=== PATIENT | female | born 1940 | race Caucasian/White ===

== ENCOUNTER 2017-01-14 10:34 | Outpatient (CLI) | payer MEDICARE, BC ==
--- NOTE | 2017-01-14 11:33 | RAD ---
RIGHT HIP 2 VIEWS: Date: 01/14/17 HISTORY: Lumbar radiculopathy. Right leg pain. FINDINGS: Femoral head contour is normal. Very mild degenerative changes of the right hip. No fracture or acute abnormality seen. IMPRESSION: No acute abnormality. POS: [facility]
== END 2017-01-14 10:35 | disposition home or self-care (01) ==
LOC: TBSIIMAG 10:34
PROVIDERS: ATTEND Neurological Surgery
DX: M54.16 Radiculopathy, lumbar region (principal)

== ENCOUNTER 2017-02-17 11:26 | Outpatient (CLI) | payer MEDICARE, BC ==
[2017-02-17 12:40] LABS: Hemoglobin 13.8 g/dL (12.0-16.0); Mean Corpuscular HGB CONC 32.7 g/dL (32.0-36.0); Mean Corpuscular Hemoglobin 32.4 pg (27.0-31.0); Mean Corpuscular Volume 99.1 fl (81.0-99.0); Mean Platelet Volume 6.3 fL (7.4-10.4); Platelet Count 308 thou/uL (130-400); RBC Distribution Width 13.2 % (11.5-14.5); Red Blood Cell (RBC) Count 4.25 mill/uL (4.20-5.40); White Blood Cell (WBC) Count 11.5 thou/uL (4.8-10.8)
[2017-02-17 13:02] LABS: Anion Gap 13 mmol/L (10-20); BUN (Urea Nitrogen) 23 mg/dL (9.8-20.1); Calc. Creatinine Clearance 0 mL/min (70-130); Calcium 9.8 mg/dL (7.8-10.44); Carbon Dioxide 26 mmol/L (23-31); Chloride 107 mmol/L (98-107); Estimated GFR-MDRD 87; Glucose 98 mg/dL (83-110); Potassium 3.9 mmol/L (3.5-5.1); Sodium 142 mmol/L (136-145)
--- NOTE | 2017-02-25 19:33 | EKG ---
Test Reason : Blood Pressure : / mmHG Vent. Rate : 063 BPM Atrial Rate : 063 BPM P-R Int : 162 ms QRS Dur : 074 ms QT Int : 390 ms P-R-T Axes : 073 063 021 degrees QTc Int : 399 ms Normal sinus rhythm Septal infarct , age undetermined Abnormal ECG When compared with ECG of 20-AUG-2016 11:31, Septal infarct is now Present Non-specific change in ST segment in Inferior leads Confirmed by RIYA DERAS (2) on 02/25/2017 7:32:31 PM Referred By: BENJIE Confirmed By:RIYA DERAS
== END 2017-02-17 11:27 | disposition home or self-care (01) ==
LOC: LABBT 11:26
PROVIDERS: ATTEND Neurological Surgery
DX: Z01.818 Encounter for other preprocedural examination (principal); M54.16 Radiculopathy, lumbar region; M48.061 Spinal stenosis, lumbar region without neurogenic claudication
CPT/HCPCS: 80048; 85027; 93005; 93010

== ENCOUNTER 2017-02-22 06:44 | Day surgery (SDC) | payer MEDICARE, BC ==
[2017-02-17 11:53] VITALS: BMI 28.7
--- NOTE | 2017-02-22 00:32 | HP ---
HISTORY OF PRESENT ILLNESS: Ms. Neville is a 76-year-old woman who presents for evaluation of multip le complaints, more specifically in this case is a major concern with inability to ambulate without t he assistance of a walker. She cites weakness in her arms and abnormality of her gait, as well as se rocky lower back pain and right-sided L3 radicular pains and groin pains. She has in the past been ev aluated by a neurologist who performed serial nerve conduction studies that showed worsening in her s ymptoms, although she does not have these reports with her. 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 She has met with Dr. Alonzo and also pursued injections with Dr. Shea, which did help, but onl y for a limited period of time. There was a concern about possible hip pathology and right hip x-ray was ordered, which was normal and at this time, she is now looking for the next step in her treatmen t. PAST MEDICAL HISTORY: Includes neuropathy, cervical stenosis, COPD, coronary arterial disease, gastr oesophageal reflux disease, and muscle contraction. CURRENT MEDICATIONS: Aspirin, Symbicort, pantoprazole, prednisone, diazepam, Lexapro, cyclobenzaprin e, atorvastatin, gabapentin, and colestipol. ALLERGIES: CODEINE. PHYSICAL EXAMINATION: NEUROLOGIC: The patient is alert and oriented x3. She has what appears to be cogwheel rigidity in h er upper extremities that was in both passive and active motions, showing oscillating tremor of very low frequency in the upper extremities, particularly with biceps and triceps flexion. Gait is also u nstable without the use of a walker. She has a shuffling low-stepping gait and starts to lose her ba britt and standing for short periods of time. With the walker, she walks essentially normal. She do es have a positive pronator drift in the right upper extremity. ASSESSMENT: Lumbar radiculopathy. PLAN: Dr. Alonzo met with the patient, reviewed imaging, and advocated for right-sided facetectomy an d foraminotomy at L2-L3 and L3-L4. He explained the risks, benefits, and alternatives to the procedu re. The patient expressed understanding and would like to move forward with surgery as discussed. I do believe the patient is mentally competent and capable of making medical decisions for herself. W e will move forward with surgery as planned. Sandip Stein PA-C dictating for Dr. Alonzo.
[2017-02-22] MEDS ORDERED: Bupivacaine HCl 0.5%/Epinephrine 1:200,000/PF 30 ml Vial ONE (07:57)
[2017-02-22] MEDS ORDERED: CEFAZOLIN/Water 2 GM/20 ML SYRINGE ONE ×2 (07:57→17:20)
[2017-02-22] MEDS ORDERED: Thrombin 5000 UNITS/5 ML VIAL ONE (07:57)
[2017-02-22] MEDS ORDERED: Fentanyl 100 MCG/2 ML VIAL ONE ×2 (08:57→10:53)
[2017-02-22] MEDS ORDERED: Hydrocortisone Sod Succ/PF 100 mg/2 ml Vial ONE ×2 (09:05→16:50)
[2017-02-22] MEDS ORDERED: Meperidine HCl/PF 25 MG/ML VIAL ONE (11:17)
--- NOTE | 2017-02-22 11:22 | OP ---
DATE OF PROCEDURE: 02/22/2017 SURGEON: Osvaldo Alonzo M.D. TIRE TRUCKER: Sandip Stein PA-C INDICATION: Pain. DIAGNOSIS: Lumbar radiculopathy secondary to lumbar stenosis. PROCEDURES: Right L2 through L4 hemilaminectomy, medial facetectomy, and decompression. ANESTHESIA: General. TECHNIQUE: The patient was brought into the operating room and placed under general anesthesia. She was flipped from a supine to a prone position on the operating room table. A linear incision was pl anned over the L2 through L4 region. After prepping and draping and after an appropriate operative p ause, the incision was created. The soft tissues were swept away from midline. Self-retaining retra ctors were placed in the wound for optimal exposure. After confirming the appropriate levels, a C-ar m fluoroscopy high-speed cutting drill bit as well as 2-mm, 3-mm, and 4-mm Kerrisons were used to per form a hemilaminectomy along the L2 through L4 segment. Laminectomy was extended laterally to encomp ass the medial aspect of the facet joint. After completely decompressing the lateral recesses, the w ound was irrigated. Hemostasis was maintained throughout. The wound was then closed in anatomic lay ers and a pressure dressing was applied. There were no known procedural complications.
[2017-02-22] MEDS ORDERED: traMADol HCl 50 MG TAB ONE (13:07)
[2017-02-22] MEDS ORDERED: PHENYLEPHRINE-NS 100 MCG/ML 10 ML SYRINGE ONE (16:50)
[2017-02-22] MEDS ORDERED: Propofol 200 MG/20 ML VIAL ONE (16:50)
[2017-02-22] MEDS ORDERED: Ondansetron HCl/PF 4 MG/2 ML Vial ONE (16:50)
[2017-02-22] MEDS ORDERED: Glycopyrrolate 0.2 MG/ML 5 ML SYRINGE ONE (16:50)
[2017-02-22] MEDS ORDERED: Sodium Chloride 0.9% 10 ML ONE (17:25)
[2017-02-22] MEDS ORDERED: Escitalopram Oxalate 20 mg Tablet PO SCH (21:00)
[2017-02-22] MEDS ORDERED: Atorvastatin Calcium 20 MG TAB PO SCH (21:00)
[2017-02-22] MEDS: Gabapentin 300 MG CAP PO SCH (21:54)
[2017-02-22] MEDS: Diazepam 5 MG TAB PO SCH (21:54)
[2017-02-22] MEDS ORDERED: Sodium Chloride 0.9% 1,000 ML IV SCH (23:46)
[2017-02-22] MEDS ORDERED: diphenhydrAMINE 25 MG CAP PO PRN (23:46)
[2017-02-22] MEDS ORDERED: Acetaminophen 650 MG Suppository PR PRN (23:46)
[2017-02-22] MEDS ORDERED: tiZANidine HCl 4 MG TAB PO PRN (23:46)
[2017-02-22] MEDS ORDERED: Morphine 4 MG/ML Carpuject SLOW IVP PRN (23:46)
[2017-02-22] MEDS ORDERED: diphenhydrAMINE 50 MG/ML VIAL IVP PRN (23:46)
[2017-02-22] MEDS ORDERED: traMADol HCl 50 MG TAB PO PRN ×2 (23:46)
[2017-02-22] MEDS ORDERED: Acetaminophen 325 MG TAB PO PRN (23:46)
[2017-02-22] MEDS ORDERED: Mag-Al 1200 mg/1200 mg/30 ML UDCUP PO PRN (23:46)
[2017-02-22] MEDS ORDERED: Ondansetron HCl/PF 4 MG/2 ML Vial SLOW IVP PRN (23:54)
[2017-02-23] MEDS ORDERED: CEFAZOLIN/Water 2 GM/20 ML SYRINGE SLOW IVP SCH (01:00)
[2017-02-23] MEDS ORDERED: Mometasone/Formoterol 120 PUFF INHALER INH SCH (06:30)
[2017-02-23] MEDS ORDERED: predniSONE 20 MG TAB PO SCH (08:00)
[2017-02-23] MEDS: Gabapentin 300 MG CAP PO SCH (08:16)
[2017-02-23] MEDS: Diazepam 5 MG TAB PO SCH (08:18)
[2017-02-23 09:11] VITALS: BP 173/103; TEMP 97.6
[2017-02-23] MEDS: Ipratropium Bromide 2.5 ml Neb NEB SCH ×2 (09:35→09:52)
[2017-02-25] MEDS ORDERED: Meloxicam 15 MG TAB PO SCH (09:00)
== END 2017-02-23 09:56 | disposition home or self-care (01) ==
LOC: SDC 06:44 → SJJU 14:04 → SDC 02-23 09:56
PROVIDERS: ATTEND Neurological Surgery
PROC: 00NY0ZZ Release Lumbar Spinal Cord, Open Approach (ICD-10-PCS; principal; 2017-02-22)
DX: M48.061 Spinal stenosis, lumbar region without neurogenic claudication (principal); M54.16 Radiculopathy, lumbar region; Z88.5 Allergy status to narcotic agent; Z98.41 Cataract extraction status, right eye; Z98.42 Cataract extraction status, left eye; Z90.710 Acquired absence of both cervix and uterus; Z90.49 Acquired absence of other specified parts of digestive tract; Z98.890 Other specified postprocedural states
CPT/HCPCS: 76001; 96374; A4216; J0670; J1720; J2175; J2405; J2704; J3010; J7506

== ENCOUNTER 2018-03-21 10:58 | Emergency (ER) | payer MEDICARE, BC ==
[2018-03-21 11:43] LABS: #Eosinphils 0.1 thou/uL (0.0-0.7); #Monocytes 0.8 thou/uL (0.11-0.59); #Neutrophils 8.5 thou/uL (1.40-6.50); %Basophils 0.1 % (0.0-1.0); %Eosinophils 0.8 % (0.0-10.0); %Lymphocytes 9.2 % (21.0-51.0); %Neutrophils 81.9 % (42.0-75.0); Hemoglobin 14.8 g/dL (12.0-16.0); Mean Corpuscular HGB CONC 32.9 g/dL (32.0-36.0); Mean Corpuscular Hemoglobin 32.7 pg (27.0-31.0); Mean Corpuscular Volume 99.4 fL (78.0-98.0); Mean Platelet Volume 6.8 fL (7.4-10.4); Platelet Count 270 thou/uL (130-400); RBC Distribution Width 11.1 % (11.5-14.5); Red Blood Cell (RBC) Count 4.53 mill/uL (4.20-5.40); White Blood Cell (WBC) Count 10.4 thou/uL (4.8-10.8)
[2018-03-21 12:03] LABS: ALT (SGPT) 16 U/L (8-55); AST (SGOT) 23 U/L (5-34); Alkaline Phosphatase 70 U/L (40-150); Anion Gap 15 mmol/L (10-20); BUN (Urea Nitrogen) 13 mg/dL (9.8-20.1); Bilirubin, Total 0.2 mg/dL (0.2-1.2); Calc. Creatinine Clearance 0 mL/min (70-130); Carbon Dioxide 21 mmol/L (23-31); Chloride 108 mmol/L (98-107); Estimated GFR-MDRD 74; Globulin 2.5 g/dL (2.4-3.5); Glucose 131 mg/dL (83-110); Potassium 3.6 mmol/L (3.5-5.1); Protein, Total 6.5 g/dL (6.0-8.3); Sodium 140 mmol/L (136-145)
--- NOTE | 2018-03-21 12:12 | RAD ---
PORTABLE CHEST ONE VIEW: Date: 03-21-18 Time: 11:32 a.m. History: Nausea, vomiting, diarrhea. FINDINGS: Comparison made with exam of 02-11-14. The heart size is normal. The lungs are expanded without focal areas of consolidation, pneumothoraces or pleural effusions. IMPRESSION: No radiographic evidence of acute cardiopulmonary process. POS: [facility]
[2018-03-21 12:40] LABS: Bilirubin Negative (Negative); Blood, Urine Negative (Negative); Glucose, Urine (Dipstick) Negative (Negative); Leukocyte Negative (Negative); Nitrite Negative (Negative); Protein, Urine (Dipstick) Negative (Neg-Trace); Specific Gravity, Urine 1.025 (1.005-1.030); Urobilinogen 0.2 mg/dL (0.2-1.0)
[2018-03-21 12:45] LABS: Clarity CLEAR (Clear)
--- NOTE | 2018-03-21 13:33 | CT ---
CT OF ABDOMEN AND PELVIS: DATE: 03/21/2018. COMPARISON: 07/10/2016. HISTORY: Pain TECHNIQUE: Axial CT imaging at 5 mm intervals from the lung bases through the pubic symphysis with IV contrast. Coronal reformatted imaging obtained. FINDINGS: Accentuation of the bowel is slightly limited without oral contrast media. The imaged lung bases demonstrate no acute findings. Here is no free intraperitoneal air or fluid se en. The hepatic parenchyma is relatively hypodense, which may signify steatosis. There is a small hypode nsity in the left lobe of the liver on image 16 measuring 6-7 mm, stable and too small to characteriz e. Gallbladder, spleen, pancreas, adrenal glands, and kidneys demonstrate no acute findings. There is a distal colonic suture line in the presacral region. There is a suture line near the junction of the small bowel and colon within the right lower quadrant as well. Fluid material is seen within the stomach and numerous nondilated loops of small bowel within the abd omen/pelvis. There is scattered atherosclerotic calcification involving the abdominal aorta, particularly the infr arenal abdominal aorta, with extension into the arterial structures at the pelvis bilaterally. No lymphadenopathy is noted within the abdomen or pelvis. There is multilevel disk space narrowing and degenerative end plate change within the lower thoracic spine and the lumbar spine. There is mild stable levoscoliosis of the lumbar spine with multilevel r ight-sided lumbar spine osteophyte formation. No worrisome lytic or blastic bone lesions are seen. IMPRESSION: There is fluid seen within the stomach and multiple nondilated loops of small bowel. Findings may si gnify gastroenteritis or developing ileus/partial obstruction. No evidence for a high-grade small aurea wel obstruction is seen at this time and there is no free intraperitoneal air seen. POS: [facility]
[2018-03-21] MEDS ORDERED: ISOVUE-370 76%-LOCM 1 ML ONE (17:00)
== END 2018-03-21 14:19 | disposition home or self-care (01) ==
LOC: ERS 10:58
DX: R11.2 Nausea with vomiting, unspecified (principal); R19.7 Diarrhea, unspecified; J44.9 Chronic obstructive pulmonary disease, unspecified; F41.9 Anxiety disorder, unspecified; F32.9 Major depressive disorder, single episode, unspecified; Z77.22 Contact with and (suspected) exposure to environmental tobacco smoke (acute) (chronic); Z79.899 Other long term (current) drug therapy
CPT/HCPCS: 36415; 71045; 74177; 80053; 81003; 83605; 84484; 85025; 87040; 87086; 87804; 93005; 96360; Q9966

== ENCOUNTER 2018-05-09 10:45 | Outpatient (CLI) | payer MEDICARE, BC ==
--- NOTE | 2018-05-09 12:59 | RAD ---
2 VIEWS CHEST: Date: 05/09/18 COMPARISON: 03/07/14. HISTORY: Shortness of breath. FINDINGS: No pneumothorax, pleural fluid, focal consolidation, or alveolar edema. Heart and mediastinal contour s are stable. Stable increased linear interstitial density and mild pulmonary hyperinflation. IMPRESSION: Chronic findings as described above. No acute findings are seen. POS: [facility]
== END 2018-05-09 10:46 | disposition home or self-care (01) ==
LOC: RAD 10:45
PROVIDERS: ATTEND Internal Medicine
DX: R06.00 Dyspnea, unspecified (principal); J98.4 Other disorders of lung; R91.8 Other nonspecific abnormal finding of lung field
CPT/HCPCS: 71046

== ENCOUNTER 2018-06-24 09:25 | Outpatient (CLI) | payer MEDICARE, BC ==
[~2018-06-24 09:25] MED LIST: Iopamidol 300 61% 100 ML VIAL FS ONE
--- NOTE | 2018-06-24 12:26 | CT ---
CT Abdomen Pelvis W Con History: [Abdominal pain. 787.22] Comparison: CT abdomen and pelvis March 2018 Findings: Lung bases are clear. No pericardial effusion. Common bile duct size is at the upper limits of normal, similar to the comparison examination. No dilated loops of large or small bowel. No free intraperitoneal gas or fluid. Pancreas and adrenal glands are unremarkable. No abnormal renal enhancing mass. Calcified granulomas of spleen. Hypodense hepatic segment 3 is unchanged, likely a cyst. The aortoiliac contour is nonaneurysmal. No retroperitoneal adenopathy. Moderate levoscoliosis lumbar spine. Impression: No acute intra-abdominal abnormality.
== END 2018-06-24 09:26 | disposition home or self-care (01) ==
LOC: SCSCT 09:25
PROVIDERS: ATTEND Internal Medicine Gastroenterology
DX: K52.9 Noninfective gastroenteritis and colitis, unspecified (principal); R13.12 Dysphagia, oropharyngeal phase; R10.33 Periumbilical pain
CPT/HCPCS: 74177; 82565

== ENCOUNTER 2018-08-04 08:41 | Outpatient (CLI) | payer MEDICARE, BC ==
--- NOTE | 2018-08-05 16:13 | RAD ---
XR Ba Swallow W/Speech Therap HISTORY: Dysphagia with feeding difficulties. COMPARISON: None. FINDINGS: A variety of liquids were given including mechanical soft textured food. With large cup sip s, premature spillage was demonstrated and the spillage extended to the piriform sinus level. No aspiration or penetration was demonstrated with any of the materials. IMPRESSION: No aspiration or penetration.
== END 2018-08-04 08:42 | disposition home or self-care (01) ==
PROVIDERS: ATTEND Internal Medicine Gastroenterology
DX: R63.3 Feeding difficulties (principal); R13.13 Dysphagia, pharyngeal phase
CPT/HCPCS: 74230

== ENCOUNTER 2018-08-10 13:53 | Outpatient (CLI) | payer MEDICARE, BC ==
[2018-08-10 16:15] LABS: Analyzer IN Cardio OR; Base Excess (BEa) 0.5 mEq/L (-2.0 to +3.0); Calcium, Ionized 1.19 mmol/L (1.12-1.30); Carboxyhemoglobin (COHb) 0.9 gm% (0.0-3.0); Hemoglobin (Hb) 13.8 g/dL (12.0-16.0); O2 Tension (PaO2) 72.4 mmHg (> 70.0); Puncture Site RR; pH, Arterial 7.41 (7.35-7.45)
== END 2018-08-10 13:54 | disposition home or self-care (01) ==
LOC: CP 13:53
PROVIDERS: ATTEND Internal Medicine
DX: J44.9 Chronic obstructive pulmonary disease, unspecified (principal)
CPT/HCPCS: 82805; 94060; 94727; 94729

== ENCOUNTER 2018-10-21 19:30 | Outpatient (CLI) | payer MEDICARE, BC | END 2018-10-21 19:31 | disposition home or self-care (01) | LOC: SLEEPLAB 19:30 | PROVIDERS: ATTEND Internal Medicine | DX: G47.33 Obstructive sleep apnea (adult) (pediatric) (principal); R53.83 Other fatigue; R09.89 Other specified symptoms and signs involving the circulatory and respiratory systems; K21.9 Gastro-esophageal reflux disease without esophagitis; R06.83 Snoring; G47.00 Insomnia, unspecified; J44.9 Chronic obstructive pulmonary disease, unspecified; R35.1 Nocturia; F41.8 Other specified anxiety disorders; G47.10 Hypersomnia, unspecified; R09.02 Hypoxemia | CPT/HCPCS: 95810 ==

== ENCOUNTER 2018-10-26 20:30 | Outpatient (CLI) | payer MEDICARE, BC | END 2018-10-26 20:31 | disposition home or self-care (01) | LOC: SLEEPLAB 20:30 | PROVIDERS: ATTEND Internal Medicine | DX: G47.33 Obstructive sleep apnea (adult) (pediatric) (principal); R53.83 Other fatigue; R09.89 Other specified symptoms and signs involving the circulatory and respiratory systems; K21.9 Gastro-esophageal reflux disease without esophagitis; F41.8 Other specified anxiety disorders; R06.83 Snoring; R35.1 Nocturia; G47.00 Insomnia, unspecified; J44.9 Chronic obstructive pulmonary disease, unspecified; G47.10 Hypersomnia, unspecified; E66.9 Obesity, unspecified; Z68.26 Body mass index [BMI] 26.0-26.9, adult | CPT/HCPCS: 95811 ==

== ENCOUNTER 2018-12-30 10:29 | Outpatient (CLI) | payer MEDICARE, BC ==
--- NOTE | 2018-12-30 12:20 | RAD ---
2 VIEWS CHEST: Date: 12/30/18 COMPARISON: 05/09/18. HISTORY: Dyspnea. FINDINGS: Two views of the chest show normal sized cardiomediastinal silhouette. There is no evidence of consol idation, mass, or pleural effusion. Degenerative changes are seen in the spine. IMPRESSION: No evidence of acute cardiopulmonary disease. POS: [facility]
== END 2018-12-30 10:30 | disposition home or self-care (01) ==
LOC: RAD 10:29
PROVIDERS: ATTEND Internal Medicine
DX: R06.00 Dyspnea, unspecified (principal)
CPT/HCPCS: 71046

== ENCOUNTER 2020-07-02 10:52 | Outpatient (CLI) | payer MEDICARE, BC ==
[2020-07-02 20:27] LABS: SARS-CoV-2 PCR by NAA Not Detected (NotDetected)
== END 2020-07-02 10:53 | disposition home or self-care (01) ==
LOC: LABBT 10:52
PROVIDERS: ATTEND Specialist
DX: Z01.812 Encounter for preprocedural laboratory examination (principal); M54.16 Radiculopathy, lumbar region; M96.1 Postlaminectomy syndrome, not elsewhere classified; G89.4 Chronic pain syndrome; Z20.822 Contact with and (suspected) exposure to COVID-19
CPT/HCPCS: U0003; U0005; 87635

== ENCOUNTER 2020-07-05 05:42 | Day surgery (SDC) | payer MEDICARE, BC ==
[2020-07-04 09:43] VITALS: BMI 34.3
[2020-07-05] MEDS ORDERED: CEFAZOLIN 1 GM VIAL ONE (05:56)
[2020-07-05] MEDS ORDERED: Sodium Chloride 0.9% 100 ML ONE (05:56)
[2020-07-05] MEDS ORDERED: EPINEPHrine 1 MG/ML AMP ONE (06:47)
[2020-07-05] MEDS ORDERED: Bupivacaine PF 0.5% 30 ML VIAL ONE (06:47)
[2020-07-05] MEDS ORDERED: Sodium Chloride 0.9% 0 ML ONE (06:47)
[2020-07-05] MEDS ORDERED: Midazolam HCl 2 mg/2 ml Vial ONE (06:51)
[2020-07-05] MEDS ORDERED: Fentanyl 100 MCG/2 ML VIAL ONE (06:51)
[2020-07-05] MEDS ORDERED: Propofol 500 MG/50 ML VIAL ONE (07:51)
[2020-07-05] MEDS ORDERED: Ondansetron PF 4 MG/2 ML Vial ONE (08:17)
[2020-07-05] MEDS ORDERED: PROPOFOL 200 MG/20 ML VIAL ONE (08:17)
[2020-07-05] MEDS ORDERED: Lidocaine 1% PF 5 ML VIAL ONE (08:17)
== END 2020-07-05 12:03 | disposition home or self-care (01) ==
LOC: SDC 05:42
PROVIDERS: ATTEND Specialist
PROC: 0JH70MZ Insertion of Stimulator Generator into Back Subcutaneous Tissue and Fascia, Open Approach (ICD-10-PCS; principal; 2020-07-05)
PROC: 00HU3MZ Insertion of Neurostimulator Lead into Spinal Canal, Percutaneous Approach (ICD-10-PCS; 2020-07-05)
DX: G89.4 Chronic pain syndrome (principal); M96.1 Postlaminectomy syndrome, not elsewhere classified; M54.16 Radiculopathy, lumbar region; Z79.899 Other long term (current) drug therapy; Z88.5 Allergy status to narcotic agent
CPT/HCPCS: 63650 ×2; 63685; 72020; C1778; C1787; C1820; L8689; 76000; J0171; J0690; J2250; J2405; J2704; J3010; J3490; S0020

== ENCOUNTER 2023-02-20 17:34 | Inpatient (IN) | payer MEDICARE, BC ==
[~2023-02-20 17:34] MED LIST changes: -Iopamidol 300 61% 100 ML VIAL FS ONE; +Iopamidol-370 76% 500 ML MDV (1 ML CHARGE) ONE
[2023-02-20 18:32] LABS: #Monocytes 1.2 thou/uL (0.11-0.59); #Neutrophils 11.4 thou/uL (1.40-6.50); %Basophils 0.2 % (0.0-1.0); %Eosinophils 0.3 % (0.0-10.0); %Lymphocytes 4.7 % (21.0-51.0); %Monocytes 8.9 % (0.0-10.0); %Neutrophils 85.4 % (42.0-75.0); Hematocrit 45.3 % (36.0-47.0); Hemoglobin 15.5 g/dL (12.0-16.0); Mean Corpuscular HGB CONC 34.2 g/dL (32.0-36.0); Mean Corpuscular Hemoglobin 32.7 pg (27.0-31.0); Mean Corpuscular Volume 95.6 fl (78.0-98.0); Mean Platelet Volume 9.4 fL (7.4-10.4); Platelet Count 261 10x3/uL (130-400); RBC Distribution Width 12.9 % (11.5-14.5); Red Blood Cell (RBC) Count 4.74 mill/uL (4.20-5.40); White Blood Cell (WBC) Count 13.3 10x3/uL (4.8-10.8)
[2023-02-20 18:51] LABS: ALT (SGPT) 20 U/L (8-55); AST (SGOT) 29 U/L (5-34); Albumin 4.5 g/dL (3.4-4.8); Alkaline Phosphatase 128 U/L (40-110); Anion Gap 17 mmol/L (10-20); BUN (Urea Nitrogen) 18 mg/dL (9.8-20.1); Bilirubin, Total 0.3 mg/dL (0.2-1.2); Calc. Creatinine Clearance 0 mL/min (70-130); Calcium 8.6 mg/dL (7.8-10.44); Carbon Dioxide 20 mmol/L (23-31); Chloride 104 mmol/L (98-107); Estimated GFR 81; Globulin 2.7 g/dL (2.4-3.5); Glucose 124 mg/dL (83-110); Lipase 9 U/L (8-78); Potassium 3.6 mmol/L (3.5-5.1); Protein, Total 7.2 g/dL (5.8-8.1); Sodium 137 mmol/L (136-145)
[2023-02-20 18:53] LABS: Troponin I Less than 0.010 ng/mL (< 0.028)
[2023-02-20] MEDS ORDERED: Piperacillin/Tazobactam 4.5 GM VIAL ONE (20:07)
[2023-02-20 21:38] LABS: Bacteria/HPF 4+ HPF (None Seen); Bilirubin Negative (Negative); Blood, Urine 1+ (Negative); CAUTI Indications for Culture Pelvic or flank pain; Clarity Clear (Clear); Glucose, Urine (Dipstick) Normal (Negative); Ketone, Urine Trace mg/dL (Negative); Leukocyte 75 Leu/uL (Negative); Nitrite Negative (Negative); Protein, Urine (Dipstick) 30 mg/dL (Neg-Trace); Squamous Epithelial 0-3 HPF (0-3); Urobilinogen Normal mg/dL (Less than 2)
[2023-02-20 21:39] LABS: Specific Gravity, Urine 1.059 (1.002-1.036)
[2023-02-20 21:40] LABS: Urine Culture Reflex No No
[2023-02-20] MEDS ORDERED: Morphine 4 MG/ML VIAL ONE (21:53)
[2023-02-20] MEDS ORDERED: Acetaminophen 325 MG TAB PO PRN (22:06)
[2023-02-20] MEDS ORDERED: Lactated Ringer's 1,000 ML IV SCH (22:15)
[2023-02-20] MEDS ORDERED: tiZANidine HCl 4 MG TAB PO PRN (22:26)
[2023-02-20] MEDS ORDERED: Morphine 2 MG/ML VIAL SLOW IVP PRN (23:39)
[2023-02-21] MEDS ORDERED: Piperacillin/Tazobactam 3.375 GM VIAL ONE (02:32)
[2023-02-21] MEDS ORDERED: Sodium Chloride 0.9% 100 ML ONE (02:32)
[2023-02-21] MEDS: Piperacillin/Tazobactam 3.375 GM in Sodium Chloride 0.9% 100 ML IVPB SCH ×3 (02:50→07:19)
[2023-02-21] MEDS ORDERED: Ondansetron PF 4 MG/2 ML Vial ONE ×2 (02:53→13:04)
[2023-02-21] MEDS: Ondansetron PF 4 MG/2 ML Vial IVP PRN (02:55)
[2023-02-21 04:22] LABS: #Monocytes 1.2 thou/uL (0.11-0.59); %Basophils 0.3 % (0.0-1.0); %Lymphocytes 9.8 % (21.0-51.0); %Monocytes 12.1 % (0.0-10.0); %Neutrophils 77.5 % (42.0-75.0); Hematocrit 42.7 % (36.0-47.0); Hemoglobin 14.1 g/dL (12.0-16.0); Mean Corpuscular Hemoglobin 31.3 pg (27.0-31.0); Mean Corpuscular Volume 94.9 fl (78.0-98.0); Mean Platelet Volume 9.5 fL (7.4-10.4); Platelet Count 217 10x3/uL (130-400); RBC Distribution Width 13.2 % (11.5-14.5); White Blood Cell (WBC) Count 10.3 10x3/uL (4.8-10.8)
[2023-02-21 04:47] LABS: Anion Gap 14 mmol/L (10-20); BUN (Urea Nitrogen) 13 mg/dL (9.8-20.1); Calc. Creatinine Clearance 0 mL/min (70-130); Calcium 8.1 mg/dL (7.8-10.44); Carbon Dioxide 26 mmol/L (23-31); Chloride 104 mmol/L (98-107); Estimated GFR 88; Glucose 106 mg/dL (83-110); Potassium 3.3 mmol/L (3.5-5.1); Sodium 141 mmol/L (136-145)
[2023-02-21] MEDS ORDERED: Promethazine 25 MG TAB PO SCH (06:00)
[2023-02-21] MEDS ORDERED: Potassium Bicarbonate/Cit Ac 20 MEQ TAB PO SCH (06:00)
[2023-02-21] MEDS ORDERED: Promethazine 25 MG TAB ONE (06:24)
[2023-02-21] MEDS ORDERED: Potassium Bicarbonate/Cit Ac 20 MEQ TAB ONE (06:24)
[2023-02-21] MEDS ORDERED: Budesonide 0.5 MG/2 ML NEB ONE (07:07)
[2023-02-21 07:10] LABS: ALT (SGPT) 43 U/L (8-55); AST (SGOT) 70 U/L (5-34); Albumin 3.9 g/dL (3.4-4.8); Alkaline Phosphatase 133 U/L (40-110); Bilirubin, Direct 0.1 mg/dL (0.1-0.3); Bilirubin, Total 0.3 mg/dL (0.2-1.2); Protein, Total 6.5 g/dL (5.8-8.1)
[2023-02-21 07:43] VITALS: BMI 26.6
[2023-02-21] MEDS: Budesonide 0.5 MG/2 ML NEB NEB SCH ×2 (08:17→20:27)
[2023-02-21] MEDS ORDERED: Gabapentin 300 MG CAP ONE (08:55)
[2023-02-21] MEDS ORDERED: predniSONE 20 MG TAB ONE (08:55)
[2023-02-21] MEDS ORDERED: Famotidine/PF 20 mg/2ml Vial ONE (08:55)
[2023-02-21] MEDS ORDERED: Lactated Ringer's 1,000 ML IV SCH (09:46)
[2023-02-21] MEDS ORDERED: Acetaminophen 500 MG TAB PO SCH (10:00)
[2023-02-21] MEDS ORDERED: Scopolamine 1 mg/72 hour Patch TD SCH (10:00)
[2023-02-21] MEDS ORDERED: Scopolamine 1 mg/72 hour Patch ONE (10:31)
[2023-02-21] MEDS ORDERED: Ipratropium/Albuterol 3 ML NEB ONE (10:32)
[2023-02-21] MEDS ORDERED: fentaNYL PF 100 MCG/2 ML SYRINGE ONE ×2 (12:01→13:36)
[2023-02-21] MEDS ORDERED: EPINEPHrine 1 MG/ML VIAL ONE (12:02)
[2023-02-21] MEDS ORDERED: PROPOFOL 20 ML ONE (12:02)
[2023-02-21] MEDS ORDERED: Bupivacaine 0.25% HCL 30 ML VIAL ONE (12:02)
[2023-02-21] MEDS ORDERED: Bupivacaine PF 0.5% 30 ML VIAL ONE (12:03)
[2023-02-21] MEDS ORDERED: Iopamidol 30 ML ONE (12:03)
[2023-02-21] MEDS ORDERED: Rocuronium Bromide 10 MG/ML (10ML VIAL) ONE (12:05)
[2023-02-21] MEDS ORDERED: Vasopressin 20 UNITS/ML VIAL ONE (12:07)
[2023-02-21] MEDS ORDERED: MINERAL OIL/WHITE PETROLATUM 3.5 GM TUBE ONE (12:54)
[2023-02-21] MEDS ORDERED: Dexamethasone 4 mg/ml Vial ONE (13:04)
[2023-02-21] MEDS ORDERED: PHENYLEPHRINE-NS 100 MCG/ML 10 ML SYRINGE ONE (13:05)
[2023-02-21] MEDS ORDERED: Glucagon 1 MG/ML KIT ONE ×2 (13:22→14:31)
[2023-02-21] MEDS ORDERED: Ketorolac Tromethamine 30 MG (1 mL) VIAL IVP SCH (14:00)
[2023-02-21] MEDS ORDERED: Ipratropium/Albuterol 3 ML NEB NEB PRN (14:01)
[2023-02-21] MEDS ORDERED: Diphenoxylate HCl/Atropine Tablet PO PRN (14:01)
[2023-02-21] MEDS ORDERED: Indomethacin 50 MG SUPP ONE (14:01)
[2023-02-21] MEDS ORDERED: Iopamidol 45 ML ONE (14:02)
[2023-02-21] MEDS ORDERED: Albuterol HFA (OR) 200 PUFF INH INH PRN (14:20)
[2023-02-21] MEDS ORDERED: Ondansetron ODT 4 MG TAB PO PRN (14:23)
[2023-02-21] MEDS ORDERED: SUGAMMADEX SODIUM 200 MG/2 ML VIAL ONE (15:27)
[2023-02-21] MEDS ORDERED: Ondansetron HCl/PF 4 MG/2 ML Vial IVP PRN (15:44)
[2023-02-21] MEDS ORDERED: Promethazine HCl 25 MG/ML VIAL IM PRN (15:44)
[2023-02-21] MEDS ORDERED: Ketorolac Tromethamine 30 MG (1 mL) VIAL ONE (16:15)
[2023-02-21] MEDS ORDERED: fentaNYL 50 mcg/mL 1 mL Vial ONE (18:21)
[2023-02-21] MEDS: Arformoterol 15 MCG/2 ML NEB NEB SCH (20:25)
[2023-02-21 21:31] LABS: Hematocrit 37.9 % (36.0-47.0); Hemoglobin 12.4 g/dL (12.0-16.0); Manual Diff?? YES; Mean Corpuscular HGB CONC 32.7 g/dL (32.0-36.0); Mean Corpuscular Hemoglobin 32.1 pg (27.0-31.0); Mean Platelet Volume 9.3 fL (7.4-10.4); Platelet Count 176 10x3/uL (130-400); RBC Distribution Width 13.4 % (11.5-14.5); Red Blood Cell (RBC) Count 3.86 mill/uL (4.20-5.40); White Blood Cell (WBC) Count 10.7 10x3/uL (4.8-10.8)
[2023-02-21 21:46] LABS: Delete Auto Diff?? YES
[2023-02-21 21:54] LABS: ALT (SGPT) 103 U/L (8-55); AST (SGOT) 171 U/L (5-34); Albumin 3.1 g/dL (3.4-4.8); Alkaline Phosphatase 153 U/L (40-110); Anion Gap 13 mmol/L (10-20); BUN (Urea Nitrogen) 11 mg/dL (9.8-20.1); Bilirubin, Total 0.5 mg/dL (0.2-1.2); Calc. Creatinine Clearance 76 mL/min (70-130); Calcium 7.9 mg/dL (7.8-10.44); Carbon Dioxide 24 mmol/L (23-31); Chloride 104 mmol/L (98-107); Estimated GFR 91; Globulin 2.1 g/dL (2.4-3.5); Glucose 101 mg/dL (83-110); Potassium 3.5 mmol/L (3.5-5.1); Protein, Total 5.2 g/dL (5.8-8.1); Sodium 137 mmol/L (136-145)
[2023-02-21 22:00] LABS: Band 35 % (5-11); CellaVision Operator ID LAB.CLH1; Hypochromia SLIGHT = 6-15 cells HPF (0-5); Lymphocytes 1 % (21-51); Monocytes 4 % (0-10); Neutrophil 60 % (42-75); Platelet Adequacy Comment Platelets Normal; Polychromasia SLIGHT = 2-3 cells HPF (0-2); Reactive Lymphocytes 1 % (0-10); Total Cell Count 104
[2023-02-21] MEDS: Montelukast Sodium 10 mg Tablet PO SCH (22:02)
[2023-02-21] MEDS: Acetaminophen 500 MG TAB PO SCH ×2 (22:03→22:32)
[2023-02-21] MEDS: Sertraline 100 MG TAB PO SCH (22:03)
[2023-02-21] MEDS: Colestipol 1 GM TAB PO SCH ×2 (22:04→22:46)
[2023-02-21] MEDS: predniSONE 20 MG TAB PO SCH (22:04)
[2023-02-21] MEDS: Famotidine/PF 20 mg/2ml Vial SLOW IVP SCH ×2 (22:04→22:37)
[2023-02-21] MEDS: Simethicone Chewable 80 MG TAB PO SCH (22:04)
[2023-02-21 22:05] LABS: Mean Corpuscular Volume 98.2 fl (78.0-98.0)
[2023-02-21] MEDS: Potassium Chloride 20 MEQ in Lactated Ringer's 1,000 ML IV SCH ×2 (22:31→23:05)
[2023-02-21] MEDS: Gabapentin 300 MG CAP PO SCH ×3 (22:34→22:35)
[2023-02-21] MEDS: traZODone HCl 50 MG TAB PO SCH (22:36)
[2023-02-21] MEDS: busPIRone HCl 10 MG TAB PO SCH (22:36)
[2023-02-21] MEDS: Ketorolac Tromethamine 30 MG (1 mL) VIAL IVP PRN (22:37)
[2023-02-22] MEDS ORDERED: Sodium Chloride 0.9% 500 ML IV SCH ×2 (00:30→01:45)
[2023-02-22 00:51] LABS: Hematocrit 33.6 % (36.0-47.0); Hemoglobin 11.1 g/dL (12.0-16.0); Manual Diff?? YES; Mean Corpuscular Hemoglobin 32.4 pg (27.0-31.0); Mean Platelet Volume 9.3 fL (7.4-10.4); Platelet Count 170 10x3/uL (130-400); RBC Distribution Width 13.5 % (11.5-14.5); Red Blood Cell (RBC) Count 3.43 mill/uL (4.20-5.40)
[2023-02-22 00:59] LABS: Delete Auto Diff?? YES
[2023-02-22 01:20] LABS: ALT (SGPT) 91 U/L (8-55); AST (SGOT) 139 U/L (5-34); Albumin 2.8 g/dL (3.4-4.8); Alkaline Phosphatase 125 U/L (40-110); Anion Gap 17 mmol/L (10-20); BUN (Urea Nitrogen) 10 mg/dL (9.8-20.1); Bilirubin, Total 0.4 mg/dL (0.2-1.2); Calc. Creatinine Clearance 77 mL/min (70-130); Calcium 7.3 mg/dL (7.8-10.44); Carbon Dioxide 23 mmol/L (23-31); Chloride 104 mmol/L (98-107); Estimated GFR 92; Globulin 1.9 g/dL (2.4-3.5); Glucose 90 mg/dL (83-110); Magnesium 1.3 mg/dL (1.6-2.6); Potassium 3.5 mmol/L (3.5-5.1); Protein, Total 4.7 g/dL (5.8-8.1); Sodium 140 mmol/L (136-145)
[2023-02-22 01:22] LABS: Band 39 % (5-11); CellaVision Operator ID LAB.CLH1; Eosinophils 1 % (0-10); Hypochromia SLIGHT = 6-15 cells HPF (0-5); Large Platelets 1.9 % (0-5); Lymphocytes 2 % (21-51); Metamyelocyte 1 % (0-0); Monocytes 4 % (0-10); Neutrophil 52 % (42-75); Platelet Adequacy Comment Platelets Normal; Polychromasia SLIGHT = 2-3 cells HPF (0-2); Reactive Lymphocytes 1 % (0-10); Total Cell Count 105
[2023-02-22 02:36] LABS: Bacteria/HPF None Seen HPF (None Seen); Bilirubin Negative (Negative); Blood, Urine 1+ (Negative); CAUTI Indications for Culture Dysuria,urgency,freq; Clarity Clear (Clear); Glucose, Urine (Dipstick) Normal (Negative); Ketone, Urine 40 mg/dL (Negative); Leukocyte Negative Leu/uL (Negative); Nitrite Negative (Negative); Protein, Urine (Dipstick) 30 mg/dL (Neg-Trace); Specific Gravity, Urine 1.023 (1.002-1.036); Squamous Epithelial 0-3 HPF (0-3); Urobilinogen Normal mg/dL (Less than 2); WBC/HPF 0-3 HPF (0-3)
[2023-02-22 02:37] LABS: Urine Culture Reflex No No
[2023-02-22] MEDS ORDERED: Electrolyte Replacement Protocol 1 EACH FS SCH (03:00)
[2023-02-22] MEDS ORDERED: Potassium Bicarbonate/Cit Ac 20 MEQ TAB PO SCH (03:00)
[2023-02-22] MEDS ORDERED: Magnesium Sulfate In Water 4 GM in Premix 1 BAG IVPB SCH (03:00)
[2023-02-22] MEDS: Arformoterol 15 MCG/2 ML NEB NEB SCH ×2 (08:20→19:38)
[2023-02-22] MEDS: Budesonide 0.5 MG/2 ML NEB NEB SCH ×2 (08:21→19:43)
[2023-02-22] MEDS: Acetaminophen 500 MG TAB PO SCH ×4 (08:32→20:27)
[2023-02-22] MEDS: Ketorolac Tromethamine 30 MG (1 mL) VIAL IVP PRN (08:34)
[2023-02-22] MEDS: Gabapentin 300 MG CAP PO SCH ×4 (08:34→20:26)
[2023-02-22] MEDS: Simethicone Chewable 80 MG TAB PO SCH ×3 (08:34→16:21)
[2023-02-22] MEDS: Colestipol 1 GM TAB PO SCH ×2 (08:35→20:27)
[2023-02-22] MEDS: Montelukast Sodium 10 mg Tablet PO SCH (08:35)
[2023-02-22] MEDS: Sertraline 100 MG TAB PO SCH (08:35)
[2023-02-22] MEDS: busPIRone HCl 10 MG TAB PO SCH ×2 (08:35→20:26)
[2023-02-22] MEDS: DULoxetine 30 MG CAP PO SCH (08:35)
[2023-02-22] MEDS: predniSONE 20 MG TAB PO SCH (08:36)
[2023-02-22] MEDS: Potassium Chloride 20 MEQ in Lactated Ringer's 1,000 ML IV SCH ×3 (09:38→22:37)
[2023-02-22] MEDS: LevoFLOXacin 500 mg/D5W 500 MG in Premix 1 BAG IVPB SCH (12:05)
[2023-02-22] MEDS: traMADol HCl 50 MG TAB PO PRN (12:14)
[2023-02-22] MEDS: traZODone HCl 50 MG TAB PO SCH (20:26)
[2023-02-22 21:27] LABS: Magnesium 2.3 mg/dL (1.6-2.6)
[2023-02-23 04:55] LABS: #Monocytes 0.3 thou/uL (0.11-0.59); #Neutrophils 7.6 thou/uL (1.40-6.50); %Basophils 0.1 % (0.0-1.0); %Eosinophils 0.3 % (0.0-10.0); %Lymphocytes 14.8 % (21.0-51.0); %Monocytes 3.5 % (0.0-10.0); %Neutrophils 80.9 % (42.0-75.0); Hematocrit 34.2 % (36.0-47.0); Hemoglobin 11.1 g/dL (12.0-16.0); Mean Corpuscular HGB CONC 32.5 g/dL (32.0-36.0); Mean Corpuscular Hemoglobin 31.7 pg (27.0-31.0); Mean Corpuscular Volume 97.7 fl (78.0-98.0); Mean Platelet Volume 9.9 fL (7.4-10.4); Platelet Count 149 10x3/uL (130-400); RBC Distribution Width 13.8 % (11.5-14.5); White Blood Cell (WBC) Count 9.4 10x3/uL (4.8-10.8)
[2023-02-23 05:22] LABS: ALT (SGPT) 65 U/L (8-55); AST (SGOT) 84 U/L (5-34); Alkaline Phosphatase 100 U/L (40-110); Anion Gap 10 mmol/L (10-20); BUN (Urea Nitrogen) 7 mg/dL (9.8-20.1); Bilirubin, Total 0.5 mg/dL (0.2-1.2); Calc. Creatinine Clearance 90 mL/min (70-130); Calcium 7.9 mg/dL (7.8-10.44); Carbon Dioxide 25 mmol/L (23-31); Chloride 106 mmol/L (98-107); Estimated GFR 95; Globulin 2.2 g/dL (2.4-3.5); Glucose 83 mg/dL (83-110); Potassium 4.2 mmol/L (3.5-5.1); Protein, Total 5.2 g/dL (5.8-8.1); Sodium 137 mmol/L (136-145)
[2023-02-23] MEDS ORDERED: Rocuronium Bromide 10 MG/ML (10ML VIAL) ONE (07:02)
[2023-02-23] MEDS ORDERED: Lidocaine 1% PF 5 ML VIAL ONE (07:02)
[2023-02-23] MEDS ORDERED: Ondansetron PF 4 MG/2 ML Vial ONE ×2 (07:02→07:31)
[2023-02-23] MEDS ORDERED: fentaNYL PF 100 MCG/2 ML SYRINGE ONE (07:02)
[2023-02-23] MEDS ORDERED: SUGAMMADEX SODIUM 200 MG/2 ML VIAL ONE (07:03)
[2023-02-23] MEDS ORDERED: Hydrocortisone Sod Succ/PF 100 mg/2 ml Vial ONE (07:03)
[2023-02-23] MEDS ORDERED: PROPOFOL 40 ML ONE (07:03)
[2023-02-23] MEDS ORDERED: PHENYLEPHRINE-NS 100 MCG/ML 10 ML SYRINGE ONE (07:05)
[2023-02-23] MEDS ORDERED: Phenylephrine 40 MG/NS 250 ML 0 ML ONE (07:05)
[2023-02-23] MEDS ORDERED: Iopamidol 30 ML ONE (07:19)
[2023-02-23] MEDS: Budesonide 0.5 MG/2 ML NEB NEB SCH ×2 (07:44→19:18)
[2023-02-23] MEDS: Arformoterol 15 MCG/2 ML NEB NEB SCH ×2 (07:44→19:18)
[2023-02-23] MEDS ORDERED: Indomethacin 50 MG SUPP ONE (07:46)
[2023-02-23] MEDS ORDERED: Glucagon 1 MG/ML KIT ONE (09:57)
[2023-02-23] MEDS: predniSONE 20 MG TAB PO SCH (10:04)
[2023-02-23] MEDS: Simethicone Chewable 80 MG TAB PO SCH ×3 (10:05→16:42)
[2023-02-23] MEDS ORDERED: Esmolol 100 MG/10 ML VIAL ONE (10:08)
[2023-02-23] MEDS: Acetaminophen 500 MG TAB PO SCH ×4 (10:42→20:10)
[2023-02-23] MEDS: busPIRone HCl 10 MG TAB PO SCH ×2 (10:42→20:11)
[2023-02-23] MEDS: Potassium Chloride 20 MEQ in Lactated Ringer's 1,000 ML IV SCH ×2 (10:42→16:42)
[2023-02-23] MEDS: Gabapentin 300 MG CAP PO SCH ×4 (10:43→20:10)
[2023-02-23] MEDS: Montelukast Sodium 10 mg Tablet PO SCH (10:43)
[2023-02-23] MEDS: Colestipol 1 GM TAB PO SCH ×2 (10:43→20:11)
[2023-02-23] MEDS: Sertraline 100 MG TAB PO SCH (10:43)
[2023-02-23] MEDS: DULoxetine 30 MG CAP PO SCH (10:43)
[2023-02-23] MEDS: LevoFLOXacin 500 mg/D5W 500 MG in Premix 1 BAG IVPB SCH (11:20)
[2023-02-23] MEDS: traMADol HCl 50 MG TAB PO PRN (15:30)
[2023-02-23] MEDS: traZODone HCl 50 MG TAB PO SCH (20:11)
[2023-02-23] MEDS: Calcium Carbonate 500 MG ChewTAB PO PRN (20:45)
[2023-02-24] MEDS: Potassium Chloride 20 MEQ in Lactated Ringer's 1,000 ML IV SCH ×3 (00:37→15:56)
[2023-02-24 05:30] LABS: #Monocytes 0.5 thou/uL (0.11-0.59); %Basophils 0.2 % (0.0-1.0); %Eosinophils 0.3 % (0.0-10.0); %Lymphocytes 16.6 % (21.0-51.0); %Monocytes 6.8 % (0.0-10.0); %Neutrophils 75.9 % (42.0-75.0); Hematocrit 33.4 % (36.0-47.0); Hemoglobin 10.9 g/dL (12.0-16.0); Mean Corpuscular HGB CONC 32.6 g/dL (32.0-36.0); Mean Corpuscular Hemoglobin 31.8 pg (27.0-31.0); Mean Corpuscular Volume 97.4 fl (78.0-98.0); Mean Platelet Volume 9.8 fL (7.4-10.4); Platelet Count 158 10x3/uL (130-400); RBC Distribution Width 13.7 % (11.5-14.5); Red Blood Cell (RBC) Count 3.43 mill/uL (4.20-5.40); White Blood Cell (WBC) Count 6.6 10x3/uL (4.8-10.8)
[2023-02-24 05:55] LABS: ALT (SGPT) 185 U/L (8-55); AST (SGOT) 380 U/L (5-34); Albumin 2.8 g/dL (3.4-4.8); Alkaline Phosphatase 256 U/L (40-110); Anion Gap 13 mmol/L (10-20); BUN (Urea Nitrogen) 9 mg/dL (9.8-20.1); Bilirubin, Total 3.7 mg/dL (0.2-1.2); Calc. Creatinine Clearance 81 mL/min (70-130); Calcium 8.2 mg/dL (7.8-10.44); Carbon Dioxide 25 mmol/L (23-31); Chloride 106 mmol/L (98-107); Estimated GFR 93; Globulin 2.4 g/dL (2.4-3.5); Glucose 87 mg/dL (83-110); Potassium 4.5 mmol/L (3.5-5.1); Protein, Total 5.2 g/dL (5.8-8.1); Sodium 139 mmol/L (136-145)
[2023-02-24] MEDS: Arformoterol 15 MCG/2 ML NEB NEB SCH ×2 (06:30→18:25)
[2023-02-24] MEDS: Budesonide 0.5 MG/2 ML NEB NEB SCH ×2 (06:33→18:23)
[2023-02-24] MEDS: busPIRone HCl 10 MG TAB PO SCH ×2 (08:54→20:24)
[2023-02-24] MEDS: predniSONE 20 MG TAB PO SCH (08:54)
[2023-02-24] MEDS: Simethicone Chewable 80 MG TAB PO SCH ×3 (08:54→17:16)
[2023-02-24] MEDS: Colestipol 1 GM TAB PO SCH ×2 (08:54→20:23)
[2023-02-24] MEDS: Sertraline 100 MG TAB PO SCH (08:54)
[2023-02-24] MEDS: DULoxetine 30 MG CAP PO SCH (08:54)
[2023-02-24] MEDS: Montelukast Sodium 10 mg Tablet PO SCH (08:54)
[2023-02-24] MEDS: Acetaminophen 500 MG TAB PO SCH ×4 (08:55→20:24)
[2023-02-24] MEDS: Gabapentin 300 MG CAP PO SCH ×4 (08:55→20:23)
[2023-02-24] MEDS: Ondansetron PF 4 MG/2 ML Vial IVP PRN (10:35)
[2023-02-24] MEDS: LevoFLOXacin 500 mg/D5W 500 MG in Premix 1 BAG IVPB SCH (12:52)
[2023-02-24] MEDS: Calcium Carbonate 500 MG ChewTAB PO PRN (12:56)
[2023-02-24] MEDS ORDERED: Diazepam 5 MG TAB PO PRN (16:14)
[2023-02-24] MEDS: traZODone HCl 50 MG TAB PO SCH (20:23)
[2023-02-25 05:55] LABS: #Eosinphils 0.1 thou/uL (0.0-0.7); #Monocytes 0.6 thou/uL (0.11-0.59); #Neutrophils 6.6 thou/uL (1.40-6.50); %Basophils 0.3 % (0.0-1.0); %Eosinophils 0.7 % (0.0-10.0); %Lymphocytes 24.8 % (21.0-51.0); %Monocytes 6.3 % (0.0-10.0); %Neutrophils 67.4 % (42.0-75.0); Hemoglobin 13.6 g/dL (12.0-16.0); Mean Corpuscular HGB CONC 31.3 g/dL (32.0-36.0); Mean Corpuscular Hemoglobin 30.6 pg (27.0-31.0); Mean Platelet Volume 10.1 fL (7.4-10.4); Platelet Count 228 10x3/uL (130-400); RBC Distribution Width 13.9 % (11.5-14.5); Red Blood Cell (RBC) Count 4.44 mill/uL (4.20-5.40); White Blood Cell (WBC) Count 9.7 10x3/uL (4.8-10.8)
[2023-02-25 05:57] LABS: Hematocrit 43.5 % (36.0-47.0)
[2023-02-25 06:24] LABS: ALT (SGPT) 150 U/L (8-55); AST (SGOT) 134 U/L (5-34); Albumin 3.3 g/dL (3.4-4.8); Alkaline Phosphatase 295 U/L (40-110); Anion Gap 16 mmol/L (10-20); BUN (Urea Nitrogen) 10 mg/dL (9.8-20.1); Bilirubin, Total 1.2 mg/dL (0.2-1.2); Calc. Creatinine Clearance 71 mL/min (70-130); Calcium 8.6 mg/dL (7.8-10.44); Carbon Dioxide 23 mmol/L (23-31); Chloride 103 mmol/L (98-107); Estimated GFR 90; Globulin 2.9 g/dL (2.4-3.5); Glucose 76 mg/dL (83-110); Potassium 3.9 mmol/L (3.5-5.1); Protein, Total 6.2 g/dL (5.8-8.1); Sodium 138 mmol/L (136-145)
[2023-02-25] MEDS: Budesonide 0.5 MG/2 ML NEB NEB SCH (07:59)
[2023-02-25] MEDS: Arformoterol 15 MCG/2 ML NEB NEB SCH (08:06)
[2023-02-25] MEDS ORDERED: FLU VACC QS2023(65UP)/MF59C/PF 60 MCG/0.5 ML SYRINGE IM ONE (09:00)
[2023-02-25] MEDS: predniSONE 20 MG TAB PO SCH (09:13)
[2023-02-25] MEDS: Sertraline 100 MG TAB PO SCH (09:13)
[2023-02-25] MEDS: DULoxetine 30 MG CAP PO SCH (09:14)
[2023-02-25] MEDS: Colestipol 1 GM TAB PO SCH (09:14)
[2023-02-25] MEDS: Simethicone Chewable 80 MG TAB PO SCH ×2 (09:14→12:15)
[2023-02-25] MEDS: busPIRone HCl 10 MG TAB PO SCH (09:14)
[2023-02-25] MEDS: Montelukast Sodium 10 mg Tablet PO SCH (09:14)
[2023-02-25] MEDS: Gabapentin 300 MG CAP PO SCH ×2 (09:14→13:32)
[2023-02-25] MEDS: Acetaminophen 500 MG TAB PO SCH ×2 (09:14→13:32)
[2023-02-25 11:40] VITALS: BP 112/78; TEMP 98.6
== END 2023-02-25 13:50 | disposition home or self-care (01) | DRG 418 ==
LOC: ERS 17:34 → ERHOLD 22:15 → SURG A 02-21 20:15 → OBSVTOIN 02-22 15:11
PROVIDERS: ADMIT Internal Medicine; ATTEND Internal Medicine
PROC: 0FT44ZZ Resection of Gallbladder, Percutaneous Endoscopic Approach (ICD-10-PCS; principal; 2023-02-21)
PROC: 0FJB8ZZ Inspection of Hepatobiliary Duct, Via Natural or Artificial Opening Endoscopic (ICD-10-PCS; 2023-02-21)
PROC: 0FC98ZZ Extirpation of Matter from Common Bile Duct, Via Natural or Artificial Opening Endoscopic (ICD-10-PCS; 2023-02-23)
DX: K80.46 Calculus of bile duct with acute and chronic cholecystitis without obstruction (principal); J96.11 Chronic respiratory failure with hypoxia; J44.9 Chronic obstructive pulmonary disease, unspecified; G62.9 Polyneuropathy, unspecified; F41.9 Anxiety disorder, unspecified; F32.A Depression, unspecified; Z88.5 Allergy status to narcotic agent; Z79.899 Other long term (current) drug therapy; I25.10 Atherosclerotic heart disease of native coronary artery without angina pectoris; K21.9 Gastro-esophageal reflux disease without esophagitis; F03.90 Unspecified dementia, unspecified severity, without behavioral disturbance, psychotic disturbance, mood disturbance, and anxiety; M19.90 Unspecified osteoarthritis, unspecified site; Z90.710 Acquired absence of both cervix and uterus; Z87.891 Personal history of nicotine dependence; R00.0 Tachycardia, unspecified
CPT/HCPCS: 36415; 47532; 74177; 74330; 76705; 80048; 80053; 80076; 81001; 83605; 83690; 83735; 84484; 85025; 87040; 87077; 87086; 87186; 88304; 93005; 94640; 96374; 96375; C1725; C1889; J0171; J1100; J1611; J1720; J1885; J1956; J2270; J2405; J2543; J2704; J3010; J3475; J3480; J3490; J7030; J7120; J7512; J7620; J7626; Q0169; Q9967; S0020; S0028

== ENCOUNTER 2023-02-26 12:17 | Inpatient (IN) | payer MEDICARE, BC ==
[2023-02-26] MEDS ORDERED: Iopamidol-370 76% 500 ML MDV (1 ML CHARGE) ONE (12:40)
[2023-02-26 13:18] LABS: #Basophils 0.1 thou/uL (0.0-0.2); #Monocytes 1.2 thou/uL (0.11-0.59); #Neutrophils 9.3 thou/uL (1.40-6.50); %Basophils 0.4 % (0.0-1.0); %Eosinophils 0.2 % (0.0-10.0); %Lymphocytes 15.2 % (21.0-51.0); %Monocytes 9.6 % (0.0-10.0); %Neutrophils 73.9 % (42.0-75.0); Hematocrit 44.9 % (36.0-47.0); Hemoglobin 13.8 g/dL (12.0-16.0); Mean Corpuscular HGB CONC 30.7 g/dL (32.0-36.0); Mean Corpuscular Hemoglobin 31.9 pg (27.0-31.0); Mean Corpuscular Volume 103.9 fl (78.0-98.0); Mean Platelet Volume 10.1 fL (7.4-10.4); Platelet Count 238 10x3/uL (130-400); Red Blood Cell (RBC) Count 4.32 mill/uL (4.20-5.40); White Blood Cell (WBC) Count 12.6 10x3/uL (4.8-10.8)
[2023-02-26 13:34] LABS: ALT (SGPT) 72 U/L (8-55); AST (SGOT) 33 U/L (5-34); Albumin 3.3 g/dL (3.4-4.8); Alkaline Phosphatase 210 U/L (40-110); Anion Gap 17 mmol/L (10-20); BUN (Urea Nitrogen) 14 mg/dL (9.8-20.1); Bilirubin, Total 0.8 mg/dL (0.2-1.2); Calc. Creatinine Clearance 0 mL/min (70-130); Calcium 8.7 mg/dL (7.8-10.44); Carbon Dioxide 19 mmol/L (23-31); Chloride 106 mmol/L (98-107); Estimated GFR 90; Globulin 3.2 g/dL (2.4-3.5); Glucose 100 mg/dL (83-110); Lipase 21 U/L (8-78); Potassium 4.1 mmol/L (3.5-5.1); Protein, Total 6.5 g/dL (5.8-8.1); Sodium 138 mmol/L (136-145)
[2023-02-26 14:13] LABS: INR-International Normal Ratio 1.1; Prothrombin Time 13.9 sec (12.0-14.7)
[2023-02-26 14:14] LABS: PTT 27.8 sec (22.9-36.1)
[2023-02-26 16:30] LABS: Lactic Acid 1.4 mmol/L (0.5-2.2)
[2023-02-26] MEDS ORDERED: Piperacillin/Tazobactam 4.5 GM VIAL ONE (16:51)
[2023-02-26] MEDS ORDERED: Sodium Chloride 0.9% 0 ML ONE (16:53)
[2023-02-26] MEDS ORDERED: Acetaminophen 325 MG TAB PO PRN (18:06)
[2023-02-26] MEDS ORDERED: Ondansetron ODT 4 MG TAB PO PRN (18:08)
[2023-02-26] MEDS ORDERED: Ondansetron PF 4 MG/2 ML Vial IVP PRN (18:08)
[2023-02-26] MEDS ORDERED: Simethicone Chewable 80 MG TAB PO PRN (19:28)
[2023-02-26] MEDS ORDERED: Ketorolac Tromethamine 30 MG (1 mL) VIAL IVP PRN (19:30)
[2023-02-26] MEDS ORDERED: Pantoprazole 40 MG VIAL IVP SCH (19:30)
[2023-02-26 19:34] LABS: Magnesium 1.4 mg/dL (1.6-2.6)
[2023-02-26] MEDS ORDERED: Magnesium 2 GM/50 ML(in water) 2 GM in Premix 1 BAG IVPB SCH (20:00)
[2023-02-26] MEDS: Lactated Ringer's 1,000 ML IV SCH (21:30)
[2023-02-26] MEDS: Gabapentin 300 MG CAP PO SCH (21:32)
[2023-02-26] MEDS: busPIRone HCl 10 MG TAB PO SCH (21:32)
[2023-02-26 23:12] VITALS: BMI 24.7
[2023-02-27] MEDS: Piperacillin/Tazobactam 3.375 GM in Sodium Chloride 0.9% 100 ML IVPB SCH ×3 (01:16→17:14)
[2023-02-27 04:26] LABS: #Eosinphils 0.2 thou/uL (0.0-0.7); #Monocytes 1.2 thou/uL (0.11-0.59); #Neutrophils 10.8 thou/uL (1.40-6.50); %Basophils 0.3 % (0.0-1.0); %Lymphocytes 15.9 % (21.0-51.0); %Monocytes 8.4 % (0.0-10.0); %Neutrophils 73.7 % (42.0-75.0); Hematocrit 37.5 % (36.0-47.0); Hemoglobin 12.4 g/dL (12.0-16.0); Mean Corpuscular HGB CONC 33.1 g/dL (32.0-36.0); Mean Corpuscular Hemoglobin 31.8 pg (27.0-31.0); Mean Platelet Volume 10.3 fL (7.4-10.4); Platelet Count 288 10x3/uL (130-400); RBC Distribution Width 13.9 % (11.5-14.5); White Blood Cell (WBC) Count 14.7 10x3/uL (4.8-10.8)
[2023-02-27 04:51] LABS: Mean Corpuscular Volume 96.2 fl (78.0-98.0)
[2023-02-27] MEDS: Budesonide 0.5 MG/2 ML NEB NEB SCH ×3 (05:07→19:18)
[2023-02-27 05:21] LABS: ALT (SGPT) 50 U/L (8-55); AST (SGOT) 21 U/L (5-34); Albumin 2.9 g/dL (3.4-4.8); Alkaline Phosphatase 169 U/L (40-110); Anion Gap 18 mmol/L (10-20); BUN (Urea Nitrogen) 7 mg/dL (9.8-20.1); Bilirubin, Total 0.7 mg/dL (0.2-1.2); Calc. Creatinine Clearance 73 mL/min (70-130); Calcium 8.2 mg/dL (7.8-10.44); Carbon Dioxide 23 mmol/L (23-31); Chloride 102 mmol/L (98-107); Estimated GFR 93; Globulin 2.8 g/dL (2.4-3.5); Glucose 81 mg/dL (83-110); Potassium 3.7 mmol/L (3.5-5.1); Protein, Total 5.7 g/dL (5.8-8.1); Sodium 139 mmol/L (136-145)
[2023-02-27] MEDS: Lactated Ringer's 1,000 ML IV SCH ×2 (08:25→20:40)
[2023-02-27] MEDS: Pantoprazole 40 MG VIAL IVP SCH (08:28)
[2023-02-27] MEDS: busPIRone HCl 10 MG TAB PO SCH ×2 (08:38→20:39)
[2023-02-27] MEDS: Sertraline 100 MG TAB PO SCH (08:38)
[2023-02-27] MEDS: DULoxetine 30 MG CAP PO SCH (08:38)
[2023-02-27] MEDS: Gabapentin 300 MG CAP PO SCH ×2 (08:38→20:39)
[2023-02-27] MEDS ORDERED: Polyethylene Glycol 3350 17 GM Packet PO PRN (09:24)
[2023-02-27] MEDS ORDERED: Iopamidol-370 76% 500 ML MDV (1 ML CHARGE) ONE (12:52)
[2023-02-27] MEDS: Enoxaparin 40 MG (0.4 mL) SYRINGE SC SCH (20:39)
[2023-02-27] MEDS: traZODone HCl 50 MG TAB PO SCH (20:39)
[2023-02-27] MEDS: Senokot S 8.6-50 MG TAB PO SCH (20:40)
[2023-02-28] MEDS: Piperacillin/Tazobactam 3.375 GM in Sodium Chloride 0.9% 100 ML IVPB SCH ×3 (00:44→16:34)
[2023-02-28 05:28] LABS: #Basophils 0.1 thou/uL (0.0-0.2); #Eosinphils 0.2 thou/uL (0.0-0.7); #Monocytes 1.2 thou/uL (0.11-0.59); #Neutrophils 7.9 thou/uL (1.40-6.50); %Basophils 0.4 % (0.0-1.0); %Lymphocytes 19.8 % (21.0-51.0); %Monocytes 10.1 % (0.0-10.0); %Neutrophils 66.3 % (42.0-75.0); Hematocrit 37.5 % (36.0-47.0); Mean Corpuscular Hemoglobin 30.8 pg (27.0-31.0); Mean Corpuscular Volume 96.2 fl (78.0-98.0); Platelet Count 342 10x3/uL (130-400); White Blood Cell (WBC) Count 11.9 10x3/uL (4.8-10.8)
[2023-02-28 05:50] LABS: ALT (SGPT) 37 U/L (8-55); AST (SGOT) 21 U/L (5-34); Albumin 2.9 g/dL (3.4-4.8); Alkaline Phosphatase 142 U/L (40-110); Anion Gap 16 mmol/L (10-20); BUN (Urea Nitrogen) 6 mg/dL (9.8-20.1); Bilirubin, Total 0.6 mg/dL (0.2-1.2); Calc. Creatinine Clearance 68 mL/min (70-130); Calcium 8.1 mg/dL (7.8-10.44); Carbon Dioxide 24 mmol/L (23-31); Chloride 103 mmol/L (98-107); Estimated GFR 92; Globulin 2.8 g/dL (2.4-3.5); Glucose 83 mg/dL (83-110); Magnesium 1.8 mg/dL (1.6-2.6); Potassium 3.3 mmol/L (3.5-5.1); Protein, Total 5.7 g/dL (5.8-8.1); Sodium 140 mmol/L (136-145)
[2023-02-28] MEDS: Budesonide 0.5 MG/2 ML NEB NEB SCH ×2 (06:31→20:29)
[2023-02-28] MEDS ORDERED: Potassium Chloride 20 MEQ TAB PO SCH (08:15)
[2023-02-28] MEDS: Pantoprazole 40 MG VIAL IVP SCH (09:19)
[2023-02-28] MEDS: Sertraline 100 MG TAB PO SCH (09:19)
[2023-02-28] MEDS: Senokot S 8.6-50 MG TAB PO SCH ×2 (09:20→21:09)
[2023-02-28] MEDS: Gabapentin 300 MG CAP PO SCH ×2 (09:20→21:08)
[2023-02-28] MEDS: DULoxetine 30 MG CAP PO SCH (09:20)
[2023-02-28] MEDS: busPIRone HCl 10 MG TAB PO SCH ×2 (09:21→21:09)
[2023-02-28] MEDS: Colestipol 1 GM TAB PO SCH (09:21)
[2023-02-28] MEDS: Lactated Ringer's 1,000 ML IV SCH (11:43)
[2023-02-28] MEDS: FORMOTEROL FUMARATE 20 MCG/2 ML NEB SCH (20:31)
[2023-02-28] MEDS: Enoxaparin 40 MG (0.4 mL) SYRINGE SC SCH (21:08)
[2023-02-28] MEDS: traZODone HCl 50 MG TAB PO SCH (21:09)
[2023-03-01] MEDS: Piperacillin/Tazobactam 3.375 GM in Sodium Chloride 0.9% 100 ML IVPB SCH ×3 (00:07→17:33)
[2023-03-01] MEDS: Budesonide 0.5 MG/2 ML NEB NEB SCH ×2 (07:48→18:45)
[2023-03-01] MEDS: Ipratropium/Albuterol 3 ML NEB NEB PRN (07:49)
[2023-03-01] MEDS: Gabapentin 300 MG CAP PO SCH ×2 (10:15→19:47)
[2023-03-01] MEDS: Colestipol 1 GM TAB PO SCH (10:16)
[2023-03-01] MEDS: Sertraline 100 MG TAB PO SCH (10:16)
[2023-03-01] MEDS: DULoxetine 30 MG CAP PO SCH (10:16)
[2023-03-01] MEDS: Senokot S 8.6-50 MG TAB PO SCH ×2 (10:16→19:48)
[2023-03-01] MEDS: busPIRone HCl 10 MG TAB PO SCH ×2 (10:17→19:48)
[2023-03-01] MEDS: Pantoprazole 40 MG VIAL IVP SCH (10:17)
[2023-03-01] MEDS: Cholecalciferol 1,000 UNITS (25 MCG) TAB PO SCH (10:17)
[2023-03-01] MEDS: FORMOTEROL FUMARATE 20 MCG/2 ML NEB SCH ×2 (10:26→21:24)
[2023-03-01] MEDS: Lactated Ringer's 1,000 ML IV SCH ×2 (10:41→12:56)
[2023-03-01] MEDS: Enoxaparin 40 MG (0.4 mL) SYRINGE SC SCH (19:47)
[2023-03-01] MEDS: traZODone HCl 50 MG TAB PO SCH (19:48)
[2023-03-01] MEDS ORDERED: Sodium Chloride 0.9% 1,000 ML IV SCH (22:00)
[2023-03-02] MEDS: Piperacillin/Tazobactam 3.375 GM in Sodium Chloride 0.9% 100 ML IVPB SCH ×3 (00:57→09:11)
[2023-03-02] MEDS: Ipratropium/Albuterol 3 ML NEB NEB PRN (08:03)
[2023-03-02] MEDS: Budesonide 0.5 MG/2 ML NEB NEB SCH (08:04)
[2023-03-02] MEDS: Cholecalciferol 1,000 UNITS (25 MCG) TAB PO SCH (09:05)
[2023-03-02] MEDS: Colestipol 1 GM TAB PO SCH (09:05)
[2023-03-02] MEDS: busPIRone HCl 10 MG TAB PO SCH (09:05)
[2023-03-02] MEDS: DULoxetine 30 MG CAP PO SCH (09:05)
[2023-03-02] MEDS: Gabapentin 300 MG CAP PO SCH (09:05)
[2023-03-02] MEDS: Senokot S 8.6-50 MG TAB PO SCH (09:06)
[2023-03-02] MEDS: Sertraline 100 MG TAB PO SCH (09:08)
[2023-03-02] MEDS: FORMOTEROL FUMARATE 20 MCG/2 ML NEB SCH (10:40)
[2023-03-02] MEDS: Pantoprazole 40 MG VIAL IVP SCH (10:41)
[2023-03-02 11:43] VITALS: BP 100/57; TEMP 98.3
== END 2023-03-02 12:45 | disposition home or self-care (01) | DRG 872 ==
LOC: ERS 12:17 → 2SW 18:37 → OBSVTOIN 02-28 08:01
PROVIDERS: ADMIT Internal Medicine; ATTEND Family Medicine
DX: A41.9 Sepsis, unspecified organism (principal); J90 Pleural effusion, not elsewhere classified; K80.00 Calculus of gallbladder with acute cholecystitis without obstruction; M19.90 Unspecified osteoarthritis, unspecified site; I25.10 Atherosclerotic heart disease of native coronary artery without angina pectoris; K21.9 Gastro-esophageal reflux disease without esophagitis; G62.9 Polyneuropathy, unspecified; K83.8 Other specified diseases of biliary tract; E87.6 Hypokalemia; E83.42 Hypomagnesemia; J44.9 Chronic obstructive pulmonary disease, unspecified; F41.9 Anxiety disorder, unspecified; F32.A Depression, unspecified; Z90.49 Acquired absence of other specified parts of digestive tract; Z98.890 Other specified postprocedural states; Z87.891 Personal history of nicotine dependence; Z88.5 Allergy status to narcotic agent; Z90.710 Acquired absence of both cervix and uterus
CPT/HCPCS: 36415; 71045; 71275; 74177; 76705; 80053; 83605; 83690; 83735; 84145; 85025; 85610; 85730; 87040; 93005; 93010; 93970; 94640; 94760; 96361; 96372; 96374; 96375; 96376; C9113; G0378; J1650; J2543; J3475; J3490; J7050; J7120; J7620; J7626; Q9967